=== PATIENT | male | born 1985 | race Caucasian/White ===

== ENCOUNTER 2016-09-19 15:37 | Emergency (ER) | payer OTHER ==
[2016-09-19 16:08] VITALS: BP 138/79; PULSE 78; RESP 16; TEMP 98.4; O2SAT 96
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
== END 2016-09-19 18:28 | disposition home or self-care (01) ==
PROC: 0HQ0XZZ Repair Scalp Skin, External Approach (ICD-10-PCS; principal; 2016-09-19)
DX: S01.01XA Laceration without foreign body of scalp, initial encounter (principal); W01.0XXA Fall on same level from slipping, tripping and stumbling without subsequent striking against object, initial encounter; Y92.828 Other wilderness area as the place of occurrence of the external cause; Y93.16 Activity, rowing, canoeing, kayaking, rafting and tubing